=== PATIENT | male | born 1955 | race Caucasian/White ===

== ENCOUNTER 2017-06-14 13:58 | Emergency (ER) | payer MEDICAID ==
[~2017-06-14] VITALS: Ht 182.9 cm; Wt 90.3 kg
[2017-06-14 14:02] VITALS: BP 173/94
[2017-06-14] MEDS ORDERED: BACITRACIN ZINC OINT 500U/GM, 0.9 GM ONE (14:43)
[2017-06-14] MEDS ORDERED: DIPH,PERTUSS(ACELL),TET VAC/PF 0.5 ML IM-VACC ONE ×2 (14:55→15:00)
[2017-06-14] MEDS ORDERED: AMOXICILLIN/CLAV 875-125MG TABLET PO ONE (15:00)
== END 2017-06-14 15:16 | disposition home or self-care (01) ==
LOC: ED 14:45
DX: S61.211A Laceration without foreign body of left index finger without damage to nail, initial encounter (principal); S61.452A Open bite of left hand, initial encounter; W54.0XXA Bitten by dog, initial encounter; Y93.89 Activity, other specified; Y92.89 Other specified places as the place of occurrence of the external cause; Y99.8 Other external cause status
CPT/HCPCS: 90471; 90715

== ENCOUNTER → 2020-03-26 | Outpatient (CLI) | payer MEDICAID, MEDICARE | END | disposition home or self-care (01) | LOC: CFH 07:37 | PROVIDERS: ATTEND Internal Medicine Cardiovascular Disease | DX: I48.0 Paroxysmal atrial fibrillation (principal); I11.0 Hypertensive heart disease with heart failure; Z87.891 Personal history of nicotine dependence | CPT/HCPCS: 93306 ==

== ENCOUNTER → 2020-05-31 | Outpatient (CLI) | payer MEDICARE ==
[~2020-05-31] MED LIST: OMNIPAQUE 350 MG/ML, 150 ML BOTTLE ONE
== END | disposition home or self-care (01) ==
LOC: CFH 08:53
PROVIDERS: ATTEND Internal Medicine Cardiovascular Disease
DX: Z13.6 Encounter for screening for cardiovascular disorders (principal); I48.91 Unspecified atrial fibrillation
CPT/HCPCS: 71046; 75572; Q9967

== ENCOUNTER 2020-06-03 06:07 | Observation (INO) | payer MEDICARE ==
[~2020-06-03] VITALS: Ht 180.3 cm; Wt 91.4 kg
[2020-06-03] MEDS ORDERED: SODIUM CHLORIDE 0.9% 1,000 ML IV SCH (06:30)
[2020-06-03] MEDS ORDERED: SODIUM CHLORIDE 0.9% 1,000 ML IV ONE (06:30)
[2020-06-03 06:35] VITALS: BP 149/89
[2020-06-03] MEDS ORDERED: DILT60TA30 PO (06:46)
[2020-06-03] MEDS ORDERED: LISI-170 PO (06:46)
[2020-06-03 07:10] LABS: BASOPHILS % (AUTO) 1 % (0-1); EOSINOPHILS % (AUTO) 1 % (1-7); LYMPHOCYTES % (AUTO) 19 % (22-44); MEAN CORPUSCULAR HGB CONC 33.1 g/dL (33.2-36.2); MEAN PLATELET VOLUME 7.2 fL (7.4-10.4); MONOCYTES % (AUTO) 8 % (2-9); NEUTROPHILS % (AUTO) 71 % (42-75); PLATELET COUNT 238 x10^3/uL (130-400); RED BLOOD COUNT 5.26 x10^6/uL (4.38-5.82)
[2020-06-03 07:13] LABS: ALANINE AMINOTRANSFERASE 13 U/L (12-78); ALBUMIN 3.7 g/dL (3.4-5.0); ANION GAP 6 mmol/L (5-15); CALCIUM 8.7 mg/dL (8.5-10.1); CHLORIDE 107 mmol/L (98-107); CREATININE 1.22 mg/dL (0.7-1.3); MD NO
[2020-06-03 07:14] LABS: ALKALINE PHOSPHATASE 71 U/L (45-117); BILIRUBIN,TOTAL 0.9 mg/dL (0.2-1.0); TOTAL PROTEIN 6.9 g/dL (6.4-8.2)
[2020-06-03 07:17] LABS: INTERNATIONAL NORMALIZED RATIO 1.06 (0.93-1.1); PROTHROMBIN TIME 11.2 Seconds (9.6-11.5)
[2020-06-03] MEDS ORDERED: LIDOCAINE 2%, 20ML ONE (07:54)
[2020-06-03] MEDS ORDERED: MIDAZOLAM 1 MG/ML, 2ML ONE (07:54)
[2020-06-03] MEDS ORDERED: PROPOFOL 50 ML ONE (07:54)
[2020-06-03] MEDS ORDERED: FENTANYL PF 250 MCG/5ML ONE (07:54)
[2020-06-03] MEDS ORDERED: ONDANSETRON 2MG/ML, 2ML ONE (08:04)
[2020-06-03] MEDS ORDERED: DEXAMETHASONE 4 MG/ML, 1ML ONE (08:04)
[2020-06-03] MEDS ORDERED: ROCURONIUM 10 MG/ML,10ML ONE (08:04)
[2020-06-03] MEDS ORDERED: SUCCINYLCHOLINE 20 MG/ML, 10ML ONE (08:04)
[2020-06-03] MEDS ORDERED: APIXABAN 5 MG TABLET ONE (08:30)
[2020-06-03] MEDS ORDERED: HEPARIN 1,000 UNITS/ML, 10ML ONE ×3 (09:34)
[2020-06-03] MEDS ORDERED: DILTIAZEM 60 MG TABLET PO PRN (11:00)
[2020-06-03] MEDS ORDERED: ACETAMINOPHEN 325 MG TABLET PO PRN ×2 (11:00→11:30)
[2020-06-03] MEDS ORDERED: morphine SULFATE 10 MG/ML, 1ML IVPush PRN (11:30)
[2020-06-03] MEDS ORDERED: EPHEDRINE 50 MG/ML, 1ML IM PRN (11:30)
[2020-06-03] MEDS ORDERED: DIPHENHYDRAMINE 50 MG/ML, 1ML IVPush PRN (11:30)
[2020-06-03] MEDS ORDERED: DIAZEPAM 5 MG/ML, 2ML IVPush PRN (11:30)
[2020-06-03] MEDS ORDERED: OXYcodone 5 MG/5 ML ORAL.SOL UDC PO PRN (11:30)
[2020-06-03] MEDS ORDERED: MEPERIDINE/PF 25MG/0.5ML IVPush PRN (11:30)
[2020-06-03] MEDS ORDERED: PROMETHAZINE 25 MG/ML, 1ML IVPush PRN (11:30)
[2020-06-03] MEDS ORDERED: ONDANSETRON 2MG/ML, 2ML IVPush PRN (11:30)
[2020-06-03] MEDS ORDERED: FENTANYL PF 100 MCG/2ML IV PRN (11:30)
[2020-06-03] MEDS ORDERED: EPHEDRINE 50 MG/ML, 1ML IVPush PRN (11:30)
[2020-06-03] MEDS: APIXABAN 5 MG TABLET PO SCH ×2 (11:35→21:20)
[2020-06-03 13:04] VITALS: BP 125/79
[2020-06-03 20:12] VITALS: BP 149/86
[2020-06-03] MEDS: COLCHICINE 0.6 MG CAPSULE PO SCH (21:20)
[2020-06-04 01:52] VITALS: BP 112/61
[2020-06-04 07:12] VITALS: BP 150/86
[2020-06-04] MEDS: COLCHICINE 0.6 MG CAPSULE PO SCH (07:45)
[2020-06-04] MEDS: APIXABAN 5 MG TABLET PO SCH (07:45)
[2020-06-04] MEDS ORDERED: COLC0.6C3 PO (08:07)
[2020-06-04] MEDS ORDERED: APIX5TAB PO (08:07)
[2020-06-04] MEDS ORDERED: ACET325T26 PO (08:07)
[2020-06-04] MEDS ORDERED: LISINOPRIL 20 MG TABLET PO SCH (09:00)
== END 2020-06-04 10:28 | disposition home or self-care (01) ==
LOC: CACL 06:07 → 5SO 10:56 → CACL 20:47 → DCLOUNGE 06-04 10:20
PROVIDERS: ADMIT Internal Medicine Cardiovascular Disease; ATTEND Internal Medicine Cardiovascular Disease
DX: I48.91 Unspecified atrial fibrillation (principal); Z20.828 Contact with and (suspected) exposure to other viral communicable diseases; I48.92 Unspecified atrial flutter; I10 Essential (primary) hypertension; F12.10 Cannabis abuse, uncomplicated; Z79.899 Other long term (current) drug therapy
CPT/HCPCS: 36415; 80053; 85025; 85347; 85610; 85730; 87635; 93308; 93312; 93321; 93325; 93613; 93656; 93657; 93662; C1730; C1732; C1759; C1766; C1769; C1894; G0378; J0330; J1100; J1644; J2250; J2405; J2704; J3010; J3490; 93462

== ENCOUNTER → 2020-12-03 | Outpatient (CLI) | payer MEDICARE ==
[~2020-12-03] MED LIST changes: +ACET325T26 PO; +APIX5TAB PO; +COLC0.6C3 PO; +DILT60TA30 PO; +LISI-170 PO; -OMNIPAQUE 350 MG/ML, 150 ML BOTTLE ONE
== END | disposition home or self-care (01) ==
LOC: STAR 08:45
PROVIDERS: ATTEND Internal Medicine Cardiovascular Disease
DX: Z20.822 Contact with and (suspected) exposure to COVID-19 (principal)
CPT/HCPCS: U0003; U0005

== ENCOUNTER 2020-12-08 06:27 | Day surgery (SDC) | payer MEDICARE ==
[~2020-12-08] VITALS: Ht 182.9 cm; Wt 86.9 kg
[2020-12-08] MEDS ORDERED: SODIUM CHLORIDE 0.9% 1,000 ML IV ONE (07:00)
[2020-12-08 07:01] VITALS: BP 139/83
[2020-12-08] MEDS ORDERED: PROPOFOL 10 MG/ML, 20ML ONE (09:55)
== END 2020-12-08 09:52 | disposition home or self-care (01) ==
LOC: CACL 06:27
PROVIDERS: ATTEND Internal Medicine Cardiovascular Disease
DX: I48.0 Paroxysmal atrial fibrillation (principal); I10 Essential (primary) hypertension; F12.10 Cannabis abuse, uncomplicated; Z79.01 Long term (current) use of anticoagulants; Z79.899 Other long term (current) drug therapy
CPT/HCPCS: 93312; 93321; 93325; J2704